=== PATIENT | female | born 1990 | race Caucasian/White ===

== ENCOUNTER 2016-10-15 12:00 | Observation (INO) ==
--- NOTE | 2016-10-15 13:58 | OB/GYN Progress Note ---
Date of Encounter: 10/15/16 Time of Encounter: 13:55 - Assessment and Plan (1) 38 weeks gestation of Current Visit: Yes Status: Acute (2) Decreased movement Current Visit: Yes Status: Acute tracing is now reactive and patient is feeling movement. Discussed tracing with Charbel Aguilar to discharge to home. Qualifiers: Fetus number: single or unspecified fetus Trimester: third trimester Qualified Code(s): O36.8130 - Decreased movements, third trimester, not applicable or unspecified (3) NST (non-stress test) reactive Current Visit: Yes Status: Acute Baseline 130 Subjective - Subjective Interval history: 38+5 presents to triage with complaints of decreased movement today. Pt states movement is much slower than has been the last couple days and is concerned. Pt states also has occasional left sided pain, does not feel like a contractions. Denies vaginal bleeding or leaking of fluid. Antepartum ROS: new complaints (decreased movment. Intermittant left sided pain ), no loss of fluid, no vaginal bleeding, no movement normal, no contractions Objective - Vital Signs Vital Signs: Intake and Output 10/14/16 10/15/16 10/15/16 23:59 07:59 15:59 Other: Weight 130.8 kg Patient Weight 10/15/16 23:59 Weight 130.8 kg - Exam FHR: auscultation normal FHR comments: Baseline 130 Auscultation: bilateral: normal Abdomen: Present: soft, gravid (obese) Cervical dilation: Closed per RN exam
[2016-10-15 14:36] LABS: Bilirubin,Urine Negative (Negative); Blood,Urine Negative (Negative); Clarity,Urine Cloudy (Clear); Color,Urine Yellow (Yellow); Glucose,Urine (UA) Normal (Normal); Ketones,Urine Trace mg/dL (Negative); Leukocyte Esterase,Urine Negative (Negative); Nitrite,Urine Negative (Negative); PH,Urine 6.5 pH Units (5.0-8.0); Protein,Urine Negative (Neg-Trace); Specific Gravity,Urine 1.014 (1.010-1.025); Urobilinogen,Urine Normal (Normal)
[2016-10-15 14:38] LABS: Bacteria,Urine None Seen per hpf (None-Few); Hyaline Casts,Urine None Seen per lpf (None-Few); Squamous Epithelial Cell,Urine Many per lpf (None-Few); WBC,Urine 0-3 per hpf (0-3)
[2016-10-15 14:58] LABS: RBC,Urine 0-3 per hpf (0-3)
== END 2016-10-15 14:25 | disposition home or self-care (01) ==
LOC: 1NENULAB
PROVIDERS: ADMIT Obstetrics & Gynecology; ATTEND Obstetrics & Gynecology

== ENCOUNTER 2016-10-17 06:05 | Inpatient (IN) ==
[2016-10-17] MEDS ORDERED: Metoclopramide 10 MG/2 ML VIAL IVP ONE (06:20)
[2016-10-17] MEDS ORDERED: Ringers Solution, Lactated 1,000 ML IVC ONE (06:20)
[2016-10-17] MEDS ORDERED: CeFAZolin Pre 3,000 MG/100 ML 3,000 MG/100 ML BAG IVPB ONE (06:20)
[2016-10-17] MEDS ORDERED: Famotidine 20 MG/2 ML VIAL IVP ONE (06:20)
[2016-10-17] MEDS ORDERED: Ringers Solution, Lactated 1,000 ML IVC SCH ×2 (06:30→13:08)
[2016-10-17 06:32] LABS: Basophils % 0.3 %; Eosinophils # 0.1 K/mcL (0.0-0.6); Eosinophils % 0.5 %; Hematocrit 35.6 % (35.3-44.9); Hemoglobin 11.9 g/dL (11.5-15.4); Immature Granulocytes % 0.5 % (0-4); Lymphocytes # 2.2 K/mcL (0.6-4.6); Mean Corpuscular HGB Conc 33.4 g/dL (31.6-35.5); Mean Corpuscular Hemoglobin 29.8 pg (28.0-33.3); Mean Corpuscular Volume 89.2 fL (83.0-100.0); Mean Platelet Volume 10.4 fL (9.4-12.4); Monocytes # 0.7 K/mcL (0.0-1.3); Monocytes % 5.8 %; Neutrophils # 8.1 K/mcL (1.6-8.9); Platelet Count 222 K/mcL (140-400); Red Blood Count 3.99 M/mcL (3.82-4.97); Red Cell Distribution Width 12.8 % (11.5-14.5); Segmented Neutrophils % 72.9 %
[2016-10-17] MEDS ORDERED: *HR* Phenylephrine 10 MG/ML VIAL ONE (07:16)
[2016-10-17] MEDS ORDERED: EPHEDrine 50 MG/ML VIAL ONE (07:20)
[2016-10-17] MEDS ORDERED: *HR* Oxytocin 10 UNIT/ML VIAL IM ONE (07:22)
[2016-10-17] MEDS ORDERED: *HR* Morphine Sulfate/PF 5 MG/10 ML AMPUL ONE (07:25)
[2016-10-17] MEDS ORDERED: *HR* FentaNYL (PF) 100 MCG/2 ML VIAL ONE (07:25)
--- NOTE | 2016-10-17 07:35 | OB/GYN History & Physical ---
Date of Encounter: 10/17/16 Time of Encounter: 07:29 Assessment and Plan (1) 39 weeks gestation of Current visit: Yes Status: Acute repeat section (2) Hx of emergency section Current visit: Yes Status: Acute History of Present Illness Chief complaint: HPI: Ms. Mccall is a 26 year old female at 39.0 weeks gestation here today for repeat . She had a previous emergency Ceserean section and her daughter has cerebral palsy. Denies vaginal bleeding, loss of fluid, blurred vision, headache, dizziness. Reports good movement. Labs: GBS -, Rubella immune Blood type A+ Past Med Surg Social Fam HX - Past Medical History Medical history: no medical history Psychiatric history: no psych history - Past Surgical History Surgical History: - Social History Smoking Status: Never smoker Smokeless Tobacco Status: No Alcohol use: none Drug use: none - Family History Mother Hx Family Medical Disorders: Yes (arthritis) Obstetrical History - Pregnancies : 2 Para: 1 Term: 1 : 0 Ab's: 0 Livin Medications and Allergies Vit #108/Iron/FA [ One Tablet] 1 tab PO DAILY 10/17/16 [History ] Allergies No Known Allergies Allergy (Verified 10/17/16 06:13) Review of System OB - Constitutional Constitutional ROS IM: as per HPI Exam - Constitutional Constitutional: well developed, well nourished, no acute distress, average body habitus - HEENT HEENT: Normocephaly, Mucus Membranes Moist - Neck Neck exam: normal inspection - Lungs Respiratory exam: CTAB - Cardiovascular Cardiovascular exam: RRR, +S1, +S2 - Abdomen Abdomen: Present: bowel sounds normal, gravid, non tender - Extremities Extremities exam: normal capillary refill, normal inspection, pedal edema, warm Results Result Diagrams: 10/17/16 06:15 Abnormal lab results WBC 11.2 K/mcL (4.3-11.1) H 10/17/16 06:15 All other labs normal.
--- NOTE | 2016-10-17 08:03 | Anesthesia Evaluation PreOp ---
Date of Encounter: 10/17/16 Time of Encounter: 07:45 - Past History Planned Operation: repeat c section Cardiac History: Denies any Significant Hx Pulmonary History: Denies Any Significant HX Other Medical History: Denies Any Significant HX Anesthesia History: No Prior Anesthetic Complications (previous c section with epidural no anesthetic issues) : Yes Test: Positive Alcohol Use: none Drug use: none Medications and Allergies Vit #108/Iron/FA [ One Tablet] 1 tab PO DAILY 10/17/16 [History ] Allergies No Known Allergies Allergy (Verified 10/17/16 06:13) - Meds/Allergy Pre-op Review Medications Reviewed: Yes Allergies Reviewed: Yes Beta Blockers on Current Med List: No Anesthesia Results - Labs 10/17/16 06:15 Anesthesia Exam 3 Vital Signs Time 0745 BP 137/77 Pulse 96 Resp 16 O2 Sat Height: 63 inches Weight: 125 kg NPO (# of Hours): 8 Pain Scale: 0 Pain Scale Used: Numeric (1 - 10) - HEENT Pupil (Motor): Pupils equal Mallampati: II Teeth: Normal Oral Opening: Greater than 3 - COFFEE SHOP ATTENDANT LOC: Oriented COFFEE SHOP ATTENDANT Motor: Normal RUE, Normal LUE, Normal RLE, Normal LLE, Normal Face COFFEE SHOP ATTENDANT Sensory: Normal: RUE, LUE, RLE, LLE, Face - Cardiac Rhythm: Regular Murmur: None JVD: No Carotid Bruit: No - Pulmonary Breath Sounds: bilateral Clear Respiratory Effort: Symmetrical Anesthesia Assess/Plan ASA Score: 3 Modified [place] Scale for Level of Consciousness: Cooperative, oriented, and tranquil Anesthetic Plan: Regional Monitoring Plan: Standard Monitors Recovery Plan: PACU
[2016-10-17] MEDS ORDERED: Ondansetron 4 MG/2 ML VIAL IVP ONE (08:04)
[2016-10-17] MEDS ORDERED: Lidocaine -MPF 2% 5 ML VIAL ONE (08:37)
[2016-10-17] MEDS ORDERED: *HR* Propofol 200 MG/20 ML VIAL IVP ONE (09:01)
[2016-10-17] MEDS ORDERED: *HR* Succinylcholine 200 MG/10 ML VIAL IVP ONE (09:03)
[2016-10-17] MEDS ORDERED: Dexamethasone 4 MG/ML VIAL ONE (09:28)
[2016-10-17] MEDS ORDERED: Ondansetron 4 MG/2 ML VIAL ONE (09:28)
[2016-10-17] MEDS ORDERED: *HR* HYDROmorphone (PF) 1 MG/ML SYRINGE ONE ×2 (09:32→09:56)
[2016-10-17] MEDS ORDERED: Ketorolac 30 MG/ML VIAL ONE (10:10)
--- NOTE | 2016-10-17 10:15 | OB/GYN Procedure Note ---
Section - Date of procedure: 10/17/16 Preop diagnosis: other (Intrauterine at 39 weeks, desires repeat section) Post-op diagnosis: same Procedure: repeat low transverse Surgeon: Quang Hooker Estimated blood loss (cc): 700 Anesthesiologist: Tavares Muniz Eligibility Supervisor: Scott Bartholomew Anesthesia Type: General section complications: none Disposition: L&D Recovery Room - (s) A Delivery Date: 10/17/16 Delivery Time: 09:26 Presentation: vertex Position: JANINA Route of delivery: other ( section) Gender: Male Viability: Viable Pounds: 7 Ounces: 14 Gram Weight: 3.58 kg at 1 minute: 9 at 5 minutes: 9 Shoulder Dystocia: not encountered Placenta: spontaneous - Narrative Narrative: Patient is a 36-year-old 2 para 1 at 39-0/7 weeks who presented for repeat low transverse section. Patient has a history of a previous section and was scheduled for repeat patient's previous section was emergent baby subsequently developed over pulsing we have been monitoring this patient with weekly NSTs to make sure this baby was doing well. Patient was scheduled for repeat at 39 weeks. Initially wanted a tubal ligation but she changed her mind. Procedure: Patient was taken to the operating room where spinal anesthesia was found to not take. General anesthesia was recommended she was placed in the dorsal supine position with leftward tilt prepped and draped in usual fashion. Once timeout had been completed general anesthesia was administered once patient was asleep a Pfannenstiel incision was made with a scalpel and carried down through the underlying tissue to the fascia was identified. The fascia was nicked in the midline extended laterally with the Phillips scissors. The superior and inferior edges of the fascia grasped tented up and dissected off the rectus muscles. Rectus muscles were in midline parietal peritoneum was identified tented up and entered sharply. This was extended superiorly and inferiorly with Metzenbaum scissors. She was noted have some abnormality lesions attached to the peritoneum but was not in the way. Bladder blade was inserted and vesicouterine peritoneum was identified tented up and entered sharply. The difficulty getting the bladder off the lower uterine segment we get it down a little bit was decided make incisional bit higher. Incision was then made extended laterally with digital manipulation. Infant's head was then brought up through the incision the infant was then fully delivered the cord was clamped and cut and was handed off to waiting pediatric team. The center was then spontaneously delivered with three-vessel cord. We were unable to exteriorize the uterus the omental adhesions were taken off the peritoneum then an Jair retractor was placed in the abdomen for visualization. The uterus was then cleaned of all clots and debris and the uterine segment was closed using an 0 Vicryl in a running locking stitch by a 2 layer closure. Good hemostasis was noted pelvis was cleaned of all clots and debris then copiously irrigated no active bleeding noted. The retractor was then removed the fascia was closed using a #1 stratafix suture in a running stitch and the skin was closed using a 4-0 Vicryl in subcuticular manner. All needles lap and sponge counts were correct 3 she did receive preoperative antibiotics. A PRASHANTH dressing was applied and the patient was taken to the recovery room in stable condition.
[2016-10-17] MEDS: *HR* HYDROmorphone (PF) 1 MG/ML SYRINGE IVP PRN ×3 (10:27→11:57)
[2016-10-17] MEDS ORDERED: Oxytocin 20 units/ LR 1000 mL 20 UNIT/1,000 ML BAG IVC ONE (10:40)
[2016-10-17] MEDS ORDERED: Sennosides 8.6 MG TABLET PO PRN (13:08)
[2016-10-17] MEDS ORDERED: Ondansetron 4 MG/2 ML VIAL IVP PRN (13:08)
[2016-10-17] MEDS ORDERED: Oxytocin 20 units/ LR 1000 mL 20 UNIT/1,000 ML BAG IVC SCH (13:08)
[2016-10-17] MEDS ORDERED: *HR* HYDROmorphone 20 MG/20 ML PCA IVC PRN (13:08)
[2016-10-17] MEDS ORDERED: Metoclopramide 10 MG/2 ML VIAL IVP PRN (13:08)
[2016-10-17] MEDS: Oxytocin 20 units/ LR 1000 mL 20 UNIT/1,000 ML BAG IVC SCH ×2 (13:41→22:40)
[2016-10-17] MEDS: Simethicone 80 MG TAB.CHEW PO PRN (20:17)
--- NOTE | 2016-10-17 22:53 | Anesthesia Evaluation Post Op ---
Date of Encounter: 10/17/16 Time of Encounter: 12:00 - Vital Signs Vital Signs: 3 Vital Signs Time 1200 BP 134/84 Pulse 80 Resp 16 O2 Sat 96 RA - Lungs Lungs: Clear Ascult./Percussion - Airway Airway: Non-obstructed - Cardiovascular Regular Rate - Mental Status Mental Status: Alert & Oriented, Answers Appropriately - Pain Pain Scale: 7 (dilaudid given at 1157) Pain Scale used: Numeric (1 - 10) - Nausea Vomiting Nausea Vomiting: Not Present - Hydration Hydration: NPO, Harding catheter - Discharge PostOp Status: Transfer Patient to floor
[2016-10-18] MEDS: Simethicone 80 MG TAB.CHEW PO PRN ×3 (01:39→20:14)
[2016-10-18] MEDS: Ibuprofen 600 MG TABLET PO PRN ×3 (01:40→23:31)
[2016-10-18 06:23] LABS: Basophils % 0.2 %; Eosinophils % 0.3 %; Hematocrit 26.7 % (35.3-44.9); Hemoglobin 9.1 g/dL (11.5-15.4); Immature Granulocytes % 0.4 % (0-4); Lymphocytes % 21.2 %; Mean Corpuscular HGB Conc 34.1 g/dL (31.6-35.5); Mean Corpuscular Hemoglobin 30.7 pg (28.0-33.3); Mean Corpuscular Volume 90.2 fL (83.0-100.0); Mean Platelet Volume 10.3 fL (9.4-12.4); Monocytes % 5.1 %; Platelet Count 157 K/mcL (140-400); Red Blood Count 2.96 M/mcL (3.82-4.97); Red Cell Distribution Width 12.7 % (11.5-14.5); Segmented Neutrophils % 72.8 %
[2016-10-18 06:24] LABS: Lymphocytes # 2.8 K/mcL (0.6-4.6); Monocytes # 0.7 K/mcL (0.0-1.3); Neutrophils # 9.5 K/mcL (1.6-8.9)
[2016-10-18] MEDS ORDERED: NON-FORMULARY MEDICATION 1 EACH EACH (Prenatal Vit #108/Iron/Fa [Prenatal One Tablet] 1 TA PO SCH (09:00)
[2016-10-18] MEDS: Prenatal Vit/FA 1 EACH TABLET PO SCH (09:16)
--- NOTE | 2016-10-18 09:50 | OB/GYN Progress Note ---
Date of Encounter: 10/18/16 Time of Encounter: 09:48 - Assessment and Plan (1) S/P repeat low transverse Current Visit: Yes Status: Acute Continue routine postop/ orders Encouraged ambulation and pain control with ordered medications Anticipate discharge home on postop day 3 or 4 (2) Anemia of the puerperium Current Visit: Yes Status: Acute VSS; asymptomatic Continue ferrous sulfate daily po Subjective - Subjective Principal diagnosis: Repeat C/S Interval history: Patient doing s/p repeat C/S day 1 Pain is well controlled Has not passed gas, normal bowel sounds present, referred gas pain in right shoulder, encouraged water, ambulation, simethicone. Urinating without difficulty Lochia is light and without clots Anticipate discharge home on day 3 or 4 POC per consult with Dr Noyola Patient reports: appetite normal, voiding normally, pain well controlled, ambulating normally : doing well, bottle feeding Objective - Vital Signs Latest vital signs: Vital Signs Temp Pulse Pulse Resp BP Pulse Ox 10/18/16 07:50 98.4 F 95 18 132/89 98 10/18/16 02:40 98.2 F 72 16 103/66 95 10/17/16 23:15 98.8 F 80 18 113/71 98 10/17/16 19:28 98.4 F 83 16 121/77 97 10/17/16 16:22 98.2 F 82 16 118/75 97 10/17/16 15:00 98.2 F 85 18 115/69 96 10/17/16 14:00 98.1 F 86 86 18 144/73 96 10/17/16 13:30 98 F 85 18 127/79 96 10/17/16 13:01 18 10/17/16 13:00 98.2 F 79 18 128/80 96 Intake and Output 10/17/16 10/18/16 10/18/16 23:59 07:59 15:59 Intake Total 1600 / 1600 700 / 700 Output Total 875 / 875 1300 / 1300 500 / 500 Balance 725 / 725 -600 / -600 -500 / -500 Intake: IV Fluids 1000 / 1000 Pitocin 20 unit In 1,000 1000 / 1000 ml @ 125 mls/hr IVC .Q8H COMPA Rx#:[id number] Oral 600 / 600 700 / 700 Output: Urine 800 / 800 500 / 500 Catheter 875 / 875 500 / 500 Other: Weight 127.459 kg Patient Weight 10/18/16 23:59 Weight 127.459 kg - Exam Lungs: bilateral: normal Chest: Normal S1, Normal S2 Extremities: Present: normal Abdomen: Present: normal appearance, soft. Absent: gravid Incision: Present: normal, dry (Dressing C/D/I), intact Uterus: Present: normal, firm Fundal Height: 0 (At U) - Labs Labs: Laboratory Results - last 24 hr 10/18/16 06:02 WBC 13.0 H RBC 2.96 L Hgb 9.1 L D Hct 26.7 L MCV 90.2 MCH 30.7 MCHC 34.1 RDW 12.7 Plt Count 157 MPV 10.3 Immature Gran % 0.4 Seg Neutrophils % 72.8 Lymphocytes % 21.2 Monocytes % 5.1 Eosinophils % 0.3 Basophils % 0.2 Neutrophils # 9.5 H Lymphocytes # 2.8 Monocytes # 0.7 Eosinophils # 0.0 Basophils # 0.0
[2016-10-18] MEDS ORDERED: Metoclopramide 10 MG/2 ML VIAL IVP ONE (09:58)
[2016-10-18] MEDS: *HR* OxyCODONE/APAP 5/325 TABLET PO PRN ×3 (11:57→20:14)
[2016-10-19 09:10] VITALS: BP 122/84
--- NOTE | 2016-10-19 09:25 | Discharge Summary ---
Date of Encounter: 10/19/16 Time of Encounter: 09:22 - Discharge Diagnosis (1) Anemia of the puerperium Priority: Secondary Status: Acute (2) S/P repeat low transverse Priority: Primary Status: Acute Comments: Pt meeting all milestones. States pain well managed on po pain medication, bleeding is minimal. bottle feeding. desires discharge - Discharge Medications Prescriptions: OxyCODONE/APAP 5/325 [Percocet 5/325 MG] 1 each PO Q4HR PRN #20 tab PRN Reason: Moderate pain 4-6 Ibuprofen [Motrin] 600 mg PO Q6HR PRN #60 tab PRN Reason: Cramping Docusate [Colace] 100 mg PO BID #60 Ferrous Sulfate [Iron] 325 mg PO DAILY #60 tablet Home Medications: Formula Tablet 10/15/16 [History] Vit #108/Iron/FA [ One Tablet] 1 tab PO DAILY 10/17/16 [History ] Docusate [Colace] 100 mg PO BID #60 10/19/16 [Rx] Ferrous Sulfate [Iron] 325 mg PO DAILY #60 tablet 10/19/16 [Rx] Ibuprofen [Motrin] 600 mg PO Q6HR PRN #60 tab 10/19/16 [Rx] OxyCODONE/APAP 5/325 [Percocet 5/325 MG] 1 each PO Q4HR PRN #20 tab 10/19/16 [Rx ] Vit/FA 1 each PO DAILY tab 10/19/16 [Rx] Simethicone [Gas-X] 80 mg PO TID PRN 10/19/16 [Rx] Allergies/Adverse Reactions: 3 Allergy/AdvReac Type Severity Reaction Status Date / Time No Known Allergies Allergy Verified 04/22/16 16:10 Data Procedures and tests throughout hospitalization: Laboratory Tests 10/17/16 10/18/16 06:15 06:02 WBC 11.2 H 13.0 H RBC 3.99 2.96 L Hgb 11.9 9.1 L D Hct 35.6 26.7 L MCV 89.2 90.2 MCH 29.8 30.7 MCHC 33.4 34.1 RDW 12.8 12.7 Plt Count 222 157 MPV 10.4 10.3 Immature Gran % 0.5 0.4 Seg Neutrophils % 72.9 72.8 Lymphocytes % 20.0 21.2 Monocytes % 5.8 5.1 Eosinophils % 0.5 0.3 Basophils % 0.3 0.2 Neutrophils # 8.1 9.5 H Lymphocytes # 2.2 2.8 Monocytes # 0.7 0.7 Eosinophils # 0.1 0.0 Basophils # 0.0 0.0 Date of admission: 10/17/16 06:05 Primary care physician: PCP NONE Discharging clinician: Ani Villarreal Anticipated date of discharge: 10/19/16 - Patient Status Disposition: Home, Self-Care Condition: Good Functional capacity at discharge: independent ambulation Overall status at discharge: patient is back to baseline - Discharge Instructions Instructions: Anemia (GEN) Follow Up With: NONE,PCP [Primary Care Provider] - Quang Hooker DO [Partnered Physician] - - Diet and Activity Activity: resume usual activities as tolerated Diet: regular diet Hospital Course Reason for admission: section Delivery: section Episiotomy: none Laceration: none Other procedures: none complications: none Discharge diagnosis: IUP at term delivered [place] baby: male Hospital course: Section - Date of procedure: 10/17/16 Preop diagnosis: other (Intrauterine at 39 weeks, desires repeat section) Post-op diagnosis: same Procedure: repeat low transverse Surgeon: Quang Hooker Estimated blood loss (cc): 700 Anesthesiologist: Tavares Muniz [employer] Laminating Operator: Scott Bartholomew Anesthesia Type: General section complications: none Disposition: L&D Recovery Room - Infant (s) Infant A Infant Delivery Date: 10/17/16 Delivery Time: 09:26 Presentation: vertex Position: JANINA Route of delivery: other ( section) Gender: Male Viability: Viable Pounds: 7 Ounces: 14 Gram Weight: 3.58 kg at 1 minute: 9 at 5 minutes: 9 Shoulder Dystocia: not encountered Placenta: spontaneous Time Attestation: Total time spent providing and/or coordinating discharge services: Time Spent: Less than 30 minutes - VTE Documentation of Mechanical Device: Intermittent pneumatic compression device Exam - Constitutional Vitals: Temp Pulse Resp BP Pulse Ox 97.7 F 94 16 122/84 100 10/19/16 07:40 10/19/16 07:40 10/19/16 07:40 08/18/17 07:40 10/18/16 20:45 General appearance IM: A&O X 3 - Respiratory Respiratory exam: Present: CTAB - Cardiovascular Cardiovascular exam IM: Present: RRR - GI/Abdominal GI/Abdominal exam IM: soft Incision: dressed (PICOT dressing in place ) - Uterine Tone: Firm - Extremities Exam Extremities exam IM: Present: normal capillary refill, normal inspection - Neurological Exam Neurological exam: normal gait, oriented X3 - Psychiatric Additional comments: Reports good mood.
[2016-10-19] MEDS: Prenatal Vit/FA 1 EACH TABLET PO SCH (09:37)
[2016-10-19] MEDS: *HR* OxyCODONE/APAP 5/325 TABLET PO PRN (09:37)
== END 2016-10-19 11:49 | disposition home or self-care (01) | DRG 540 ==
LOC: MERGE 06:05 → 1NENULAB 06:05 → 1NENUOBS 12:55
PROVIDERS: ADMIT Obstetrics & Gynecology; ATTEND Obstetrics & Gynecology

== ENCOUNTER 2017-08-06 13:32 | Observation (INO) ==
[2017-08-06] MEDS ORDERED: *HR* Labetalol 20 MG/4 ML SYRINGE IVP ONE ×4 (13:55→14:37)
[2017-08-06] MEDS ORDERED: Betamethasone Acet/SodPhos 6 MG/ML MDV IM STA (13:55)
[2017-08-06] MEDS ORDERED: Ringers Solution, Lactated 1,000 ML ONE (13:56)
[2017-08-06] MEDS: *HR* Labetalol 20 MG/4 ML SYRINGE IVP ONE ×3 (13:58→14:47)
[2017-08-06] MEDS ORDERED: *HR* Labetalol 20 MG/4 ML SYRINGE IVP STA ×2 (14:11→14:30)
--- NOTE | 2017-08-06 14:27 | OB/GYN History & Physical ---
Date of Encounter: 08/06/17 Time of Encounter: 14:16 Assessment and Plan (1) Severe preeclampsia Current visit: Yes Status: Acute Prob list: 26 y/o @ 29+ weeks, Morbid obesity, preeclampsia with severe features Pressures on L&D was 215 systolics and I gave her Labetalol 20mg, 40mg, 80mg IV , Hydralazine 10mg x 3, Procardia 10mg x 1 her pressures are now in the mild range, patient being transferred to [facility], MFM consulted and accepting transfer (pls see labs attached), patient started on Mg for seizure ppx, given steroids x 1 @ 2:16PM Qualifiers: Trimester: third trimester Qualified Code(s): O14.13 - Severe pre-eclampsia , third trimester History of Present Illness HPI: Ms. Mccall is a 26 year old female @ 29+6 weeks with a history of 2 prior c-sections and morbid obesity who presented to the office with epigastric pain, nausea and vomiting since Saturday. She has gained 35lbs in 2 weeks, she reported in the office "I don't feel good". I sent her to L&D for tox eval, labs for potential HELLP/Acute Fatty Liver. She had 3+ protein in the office with normal pressures but spiked to 200's on Land D. Growth U/S was done in the office and asymmetric IUGR with AC <5%. Past Med Surg Social Fam HX - Past Medical History Medical history: non-contributory Psychiatric history: no psych history - Past Surgical History Surgical History: - Social History Smoking Status: Never smoker Smokeless Tobacco Status: No Alcohol use: none Drug use: none - Family History Mother Adopted: No Living Status: Still Living Hx Family Cardiac Disorders: No Hx Family Respiratory Disorders: No Hx Family Cancer: No Hx Family GI Disorders: No Hx Family Endocrine Disorder: No Hx Family Neuromuscular Disorders: No Hx Family Neurologic Disorders: No Hx Family HEENT Disorders: No Hx Family Autoimmune Disorders: No Obstetrical History - Pregnancies : 3 Para: 2 Medications and Allergies Vit/FA 1 each PO DAILY tab 10/19/16 [Rx] Ondansetron [Zofran] 8 mg PO Q8HR PRN #6 tablet 02/27/17 [Rx] 3 Allergy/AdvReac Type Severity Reaction Status Date / Time No Known Allergies Allergy Verified 02/27/17 20:12 Review of System OB All systems PM: reviewed and no additional remarkable complaints except as stated Exam - Constitutional Constitutional: morbidly obese - HEENT HEENT: PERRL - Neck Neck exam: full ROM - Lungs Respiratory exam: CTAB - Cardiovascular Cardiovascular exam: RRR - Abdomen Abdomen: Present: gravid - Extremities Extremities exam: warm Results Result Diagrams: 08/06/17 14:30 08/06/17 14:30 All other labs normal. - VTE Reasons for not Prescribing Prophylaxis: Treatment not Indicated - Low risk for VTE
[2017-08-06 14:38] LABS: Amphetamine Screen,Urine Negative ng/mL (Cutoff=1000); Barbiturate Screen,Urine Negative ng/mL (Cutoff=200); Benzodiazepines Screen,Urine Negative ng/mL (Cutoff=200); Cannabinoid Screen,Urine Negative ng/mL (Cutoff = 50); Cocaine Screen,Urine Negative ng/mL (Cutoff= 300); Opiate Screen,Urine Negative ng/mL (Cutoff=300); Phencyclidine Screen,Urine Negative ng/mL (Cutoff=25)
[2017-08-06 14:41] LABS: Basophils % 0.2 %; Eosinophils # 0.1 K/mcL (0.0-0.6); Eosinophils % 0.5 %; Hematocrit 36.4 % (35.3-44.9); Hemoglobin 12.9 g/dL (11.5-15.4); Immature Granulocytes % 0.7 % (0-4); Lymphocytes # 1.9 K/mcL (0.6-4.6); Lymphocytes % 12.1 %; Mean Corpuscular HGB Conc 35.4 g/dL (31.6-35.5); Mean Corpuscular Hemoglobin 31.5 pg (28.0-33.3); Monocytes # 0.7 K/mcL (0.0-1.3); Monocytes % 4.5 %; Neutrophils # 12.6 K/mcL (1.6-8.9); Platelet Count 132 K/mcL (140-400); Red Blood Count 4.09 M/mcL (3.82-4.97); Red Cell Distribution Width 13.8 % (11.5-14.5)
[2017-08-06] MEDS ORDERED: Magnesium Sulfate 20 gm/500mL 20 GM/500 ML IV.SOLN IVC SCH ×2 (14:42→18:00)
[2017-08-06 15:09] LABS: Alanine Aminotransferase 49 Units/L (7-52); Albumin 2.6 g/dL (3.5-5.7); Alkaline Phosphatase 56 Units/L (34-104); Aspartate Amino Transferase 54 Units/L (13-39); BUN/Creatinine Ratio 33 (6-26); Bilirubin,Total 0.4 mg/dL (0.3-1.0); Blood Urea Nitrogen 23 mg/dL (6-20); Calcium 8.7 mg/dL (8.6-10.3); Carbon Dioxide 24 mEq/L (23-29); Chloride 106 mEq/L (98-107); Globulin 2.7 g/dL (2.4-3.5); Glucose 90 mg/dL (70-105); Osmolality,Calculated 285 (280-300); Potassium 3.8 mEq/L (3.5-5.1); Sodium 136 mEq/L (136-145); Total Protein 5.3 g/dL (6.4-8.9); eGFR For African Americans > 60 (> 60); eGFR For Non-African Americans > 60 (> 60)
[2017-08-06] MEDS ORDERED: NIFEdipine 10 MG CAPSULE PO ONE (15:46)
[2017-08-06 16:02] LABS: Lactate Dehydrogenase 403 Units/L (140-271); Uric Acid 8.9 mg/dL (2.3-7.6)
[2017-08-06 16:02] LABS: Creatinine,Urine 154 mg/dL
== END 2017-08-06 17:20 | disposition critical access hospital (66) ==
LOC: 1NENULAB
PROVIDERS: ADMIT Student in an Organized Health Care Education/Training Program; ATTEND Student in an Organized Health Care Education/Training Program